=== PATIENT | female | born 1975 | race Caucasian/White ===

== ENCOUNTER 2019-10-26 00:28 | Emergency (ER) | payer SELFPAY ==
[~2019-10-26] VITALS: Ht 165.1 cm; Wt 77.0 kg
[2019-10-26 02:04] LABS: BASOPHILS % 0.5 % (0.0-2.0); EOSINOPHILS % 0.2 % (0.0-5.0); HEMATOCRIT. 44.2 % (36.0-48.0); HEMOGLOBIN. 15.1 g/dL (12.0-16.0); LYMPHOCYTES % 27.3 % (20.0-50.0); MEAN CORPUSCULAR HEMOGLOBIN 29.9 pg (28.0-32.0); MEAN CORPUSCULAR VOLUME 87.5 fL (81.0-99.0); MEAN PLATELET VOLUME 8.3 fl (7.4-10.4); MONOCYTES % 8.7 % (2.0-8.0); NEUTROPHILS % 63.3 % (40.0-76.0); PLATELET 294 x1000/uL (130-400); RED BLOOD CELL COUNT 5.05 mill/uL (4.2-5.4); RED CELL DISTRIBUTION WIDTH 13.5 % (11.6-14.6)
[2019-10-26 02:11] LABS: CHLORIDE 110 mEq/L (98-107)
[2019-10-26 02:15] LABS: ETHANOL BLOOD < 10 mg/dL
[2019-10-26 06:42] VITALS: BP 109/73
== END 2019-10-26 14:10 | disposition home or self-care (01) ==
LOC: ER 00:28
DX: R44.0 Auditory hallucinations (principal); F14.10 Cocaine abuse, uncomplicated
CPT/HCPCS: 36415; 80053; 80307; 80320; 80329; 85025; 99283; G0480